=== PATIENT | male | born 1980 | race Caucasian/White ===

== ENCOUNTER 2020-07-10 12:12 | Emergency (ER) | payer BC, SELFPAY ==
--- NOTE | ~2020-07-10 | CT_ITS ---
EXAMINATION: CT abdomen pelvis wo con DATE: 07/10/2020 13:45 INDICATION: Right lower quadrant abdominal and flank pain. TECHNIQUE: Computed tomography (CT) of the abdomen and pelvis was performed without intravenous contr ast. Automated exposure control and iterative reconstruction technique were employed. The dose-length product was 313.07 mGy-cm. COMPARISON: None FINDINGS: Mild dependent atelectasis in the right lower lobe. Heart size is normal. No pericardial or pleural e ffusion. Somewhat heterogeneous distribution of diffuse hepatic steatosis relatively sparing the righ t hepatic lobe and with more focal fat at the ligamentum teres. Gallbladder, spleen, pancreas and jessica ateral adrenal glands are normal. There are a pair of 2 mm stones in the distal right ureter located between 1.5 and 2.5 cm from the ureterovesicular junction. There is mild right hydroureteronephrosis. There is an additional 1 mm stone at the upper pole of the right kidney. No left-sided urolithiasis or hydroureteronephrosis. Bowels including the appendix are normal. Bladder is normal. No free intrap eritoneal gas or fluid. No pathologically enlarged abdominal or pelvic lymphadenopathy. Minimal lumba r and mild lower thoracic spondylosis with a few Schmorl's nodes along the lower thoracic spine. IMPRESSION: 1. Right nephrolithiasis with a pair of 2 mm stones in the distal right ureter resulting in mild righ t hydronephrosis. 2. Diffuse hepatic steatosis. Reviewed, dictated and finalized at location A. IMPRESSION: 1. Right nephrolithiasis with a pair of 2 mm stones in the distal right ureter resulting in mild right hydronephrosis. 2. Diffuse hepatic steatosis.
[2020-07-10 12:14] VITALS: BP 164/95; PULSE 65; RESP 18; TEMP 36.1; O2SAT 98
[2020-07-10 12:32] VITALS: BP 147/79; PULSE 54; RESP 20; O2SAT 97
[2020-07-10] MEDS: MORPHINE SULFATE 4 MG/ML INJ IV PUSH (12:33)
[2020-07-10] MEDS: SODIUM CHLORIDE 0.9% IV 1,000 ML 150 ML IV CONT (12:35)
[2020-07-10 12:36] LABS: Basophils Absolute Auto 0.1 K/mm3 (0.0-0.1); Basophils Percent Auto 0.4 % (0.2-1.2); Eosinophils Percent Auto 0.1 % (0-4.4); Hematocrit 39.5 % (42.0-52.0); Immature Granulocyte Absolute 0.09 K/mm3 (0.00-0.031); Immature Granulocyte Percent A 0.6 % (0-0.5); Lymphocytes Percent Auto 11.4 % (18.3-44.2); Mean Corpuscular HGB Conc 35.4 g/dl (32-36); Mean Corpuscular Hemoglobin 36.9 pg (26-34); Mean Corpuscular Volume 104.2 fl (80-100); Mean Platelet Volume 9.4 fl (7.4-10.4); Monocytes Absolute Auto 0.7 K/mm3 (0.1-0.6); Monocytes Percent Auto 4.6 % (2.6-8.5); Neutrophils Absolute Auto 13.2 K/mm3 (1.3-6.7); Neutrophils Percent Auto 82.9 % (45.5-73.1); Platelet Count Result 162 k/mm3 (150-375); Red Blood Count 3.79 M/mm3 (4.6-6.20); Red Cell Distribution Width 13.1 % (11.5-14.5); White Blood Count 15.9 K/mm3 (4.5-10.0)
[2020-07-10 12:47] LABS: Alanine Aminotransferase 35 U/L (4-50); Albumin Level 4.1 g/dL (3.5-5.1); Alkaline Phosphatase 112 U/L (38-126); Anion Gap 10 mmol/L (8-16); Aspartate Amino Transferase 93 U/L (17-59); Bilirubin,Total 0.5 mg/dL (0.2-1.3); Blood Urea Nitrogen 7 mg/dL (9-20); Calcium 8.5 mg/dL (8.4-10.2); Carbon Dioxide 22 mmol/L (22-30); Chloride 106 mmol/L (98-107); Estimated CRCL calculation 111 ml/min; Estimated Glomerular Filt Rate > 60; Glucose 179 mg/dL (75-110); Lipase 166 U/L (23-300); Potassium 3.9 mmol/L (3.4-5.0); Sodium 138 mmol/L (137-145)
[2020-07-10 12:51] LABS: Add Urine Microscopic? YES; Appearance Urine Cloudy (Clear); Bilirubin Urine Negative (Negative); Blood Urine 3+ (Negative); Color Urine Yellow (Yellow); Glucose Urine UA Negative (Negative); Ketones Urine Negative (Negative); Leukocyte Esterase Ur Negative LEU/UL (Negative); Mucus Urine Rare /lpf; Nitrate Urine Negative (Negative); Protein Urine Negative (Negative); RBC Urine >75 /hpf (0-2); Specific Grav Ur 1.017 (1.001-1.035); Urobilinogen Urine Negative mg/dL (<2.0)
--- NOTE | 2020-07-10 14:14 | ED.ABDPAIN ---
HPI - Abdominal Pain General Chief Complaint: Abdominal Pain Stated Complaint: abdominal pain Time Seen by Provider: 07/10/20 12:18 Source: patient Mode of arrival: ambulatory Limitations: no limitations History of Present Illness HPI narrative: 40-year-old with no major medical problems here with complaints of sudden onset of lower abdominal pain started few hours ago at home. Patient states that he woke up without any difficulty while eating breakfast he started having pain in the lower abdomen. He denies any fever or chills. Complains of nausea and he also stated that he is unable to urinate. No previous history of any kidney stones MD elicited complaint: abdominal pain Pertinent past history: none Onset (ago): hour(s) (1) Pain Consistency: constant Location: suprapubic Severity: moderate Quality: stabbing and aching Radiation: suprapubic Migration to: no migration Exacerbating factors: nothing Relieving factors: nothing Associated symptoms: nausea Related Data Allergies Allergy/AdvReac Type Severity Reaction Status Date / Time No Known Allergies Allergy Verified 07/10/20 12:30 Review of Systems Review of Systems: All systems reviewed & are unremarkable except as noted in HPI and below Constitutional: Constitutional: Reports no additional constitutional complaints Eyes: Eyes: Reports as per HPI Cardiovascular: Cardiovascular: Reports as per HPI Respiratory: Respiratory: Reports as per HPI Genitourinary: Genitourinary: Reports as per HPI Musculoskeletal: Musculoskeletal: Reports no additional musculoskeletal complaints Exam Narrative: Exam Narrative: GENERAL: Well-appearing, well-nourished, and in no acute distress. HEAD: Normocephalic, atraumatic. EYES: PERRLA and EOMI. ENT: Nares clear, no rhinorrhea or epistaxis. Mucous membranes moist. NECK: Supple. CHEST: Clear to auscultation. No respiratory distress. HEART: Regular rate and rhythm. No murmur heard. Normal peripheral pulses. ABDOMEN: Soft, tender in the suprapubic area and in the right lower quadrant area., nondistended, normal active bowel sounds. EXTREMITIES: Normal range of motion. No edema. SKIN: Warm, dry, no rash. NEURO: No focal deficits. Alert and oriented x3. PSYCH: Normal mood and affect. Course Course Emergency Course: With a sudden onset of her lower abdominal pain give him some IV fluids and pain medication and review evaluate for cause of pain. Vital Signs Vital signs: Vital Signs Temperature 36.1 C L 07/10/20 12:14 Pulse Rate 65 07/10/20 12:14 Respiratory Rate 18 07/10/20 12:14 Blood Pressure 164/95 H 07/10/20 12:14 Pulse Oximetry 98 07/10/20 12:14 Temperature 36.1 C L 07/10/20 12:14 Pulse Rate 54 L 07/10/20 12:32 Respiratory Rate 20 07/10/20 12:32 Blood Pressure 147/79 H 07/10/20 12:32 Pulse Oximetry 97 07/10/20 12:32 MDM - Abdominal Pain MDM Narrative Medical decision making narrative: With a given history of lower abdominal pain sudden onset and unable to urinate appears to be more like kidney stones, will order CBC chemistry UA and a CT of the abdomen and pelvis meanwhile I will hydrate him and also control his pain with morphine. Patient states his pain has much improved I discussed labs and CT findings with the patient. Differential Diagnosis Differential diagnosis: Likely calculus of kidney, constipation and gastroenteritis Lab Data Result diagrams: 07/10/20 12:29 07/10/20 12:29 Labs: Lab Results 07/10/20 07/10/20 07/10/20 Range/Units 12:29 12:29 12:29 WBC 15.9 H (4.5-10.0) K/mm3 RBC 3.79 L (4.6-6.20) M/mm3 Hgb 14.0 (14.0-18.0) g/dL Hct 39.5 L (42.0-52.0) % MCV 104.2 H (80-100) fl MCH 36.9 H (26-34) pg MCHC 35.4 (32-36) g/dl RDW 13.1 (11.5-14.5) % Plt Count 162 (150-375) k/mm3 MPV 9.4 (7.4-10.4) fl Immature Gran % (Auto) 0.6 H (0-0.5) % Neut % (Auto) 82.9 H (45.5-73.1) % Lymph % (Auto
[2020-07-10 14:36] VITALS: BP 159/71; PULSE 53; RESP 18; TEMP 36.7; O2SAT 99
== END 2020-07-10 14:38 | disposition home or self-care (01) ==
PROVIDERS: Emergency Provider Family Medicine
DX: N13.2 Hydronephrosis with renal and ureteral calculous obstruction (principal); K76.0 Fatty (change of) liver, not elsewhere classified
CPT/HCPCS: 36415; 74176; 80053; 81001; 83690; 85025; 87086; 96361; 96374; 99284; J2270; J7030

== ENCOUNTER 2020-08-16 11:15 | Emergency (ER) | payer BC, SELFPAY ==
--- NOTE | ~2020-08-16 | CT_ITS ---
EXAMINATION: CT abdomen pelvis wo con EXAM DATE: 08/16/2020 13:14 INDICATION: Right lower quadrant pain, history nephrolithiasis. TECHNIQUE: Spiral CT of the abdomen and pelvis was performed without contrast. Axial, coronal and sag ittal images were reviewed. The dose-length product (DLP) for this examination was 190.28 mGy-cm. T he exposure was tailored according to patient size (auto mA exposure control), and iterative reconstr uction (ASIR) was used as additional dose reduction technique. Comparison is made to prior examinatio n from 07/10/2020. FINDINGS: There is 1 x 3 mm stone in the right ureterovesicular junction with mild obstructive nephro aura. Additional punctate right superior calyceal stone. The prostate is unremarkable. The bladder is unremarkable. There is hepatic steatosis without suspicious focal lesion identified. Spleen, adr enal glands, pancreas are unremarkable. Gallbladder is unremarkable. No biliary obstruction. There is no retroperitoneal or pelvic lymphadenopathy. The appendix is normal. The stomach and small bowel are unremarkable. There is expected amount of c olonic stool. No free intraperitoneal gas. The heart is normal in size. There are no pericardial or pleural effusions. There is left lower lobe 4 mm pleural-based nodule, granuloma. Small sclerot ic focus in T10 likely bone island. IMPRESSION: 1. Right UVJ 1 x 3 mm stone, mild obstructive nephropathy. 2. Punctate right nephrolithiasis. 3. Hepatic steatosis. Reviewed, dictated and finalized at location B.
--- NOTE | ~2020-08-16 | XR_ITS ---
EXAMINATION: XR abdomen/kub 1V EXAM DATE: 08/16/2020 11:40 INDICATION: Right flank pain. Dysuria. TECHNIQUE: Frontal projection(s) of the abdomen for interpretation. There is no prior study for jyothi gomez. FINDINGS: There is expected amount of colonic stool and gas. No small bowel dilation, nonobstructiv e bowel gas pattern. Calcifications in the pelvis are believed to be phleboliths. There is no organomegaly suspected. The bones are unremarkable. Lung bases unremarkable. IMPRESSION: Several pelvic calcifications most likely phleboliths. Reviewed, dictated and finalized at location B.
[2020-08-16 11:22] VITALS: BP 154/96; PULSE 72; RESP 14; TEMP 36.3; O2SAT 99
--- NOTE | 2020-08-16 11:29 | ED.ABDPAIN ---
HPI - Abdominal Pain General Chief Complaint: Abdominal Pain Stated Complaint: FLANK PAIN - PMH OF KIDNEY STONE Time Seen by Provider: 08/16/20 11:29 Source: patient Mode of arrival: ambulatory Limitations: no limitations History of Present Illness HPI narrative: Patient is a 40-year-old male with a history of right-sided nephrolithiasis who presents for evaluation of right lower abdominal pain. Patient states pain is been severe, sharp, cramping in nature, awakened him early this morning. He has had some associated nausea, no vomiting. Patient reports difficulty with urination, no hematuria or dysuria. No fever or chills. Patient was seen here in June and diagnosed with 2 distal ureteral stones, never had any urology follow-up as he was feeling improved with pain medication. Related Data Allergies Allergy/AdvReac Type Severity Reaction Status Date / Time No Known Allergies Allergy Verified 08/16/20 11:59 Review of Systems Review of Systems: Narrative: CONSTITUTIONAL: Denies fever CARDIOVASCULAR: Denies chest pain RESPIRATORY: Denies cough or dyspnea. GASTROINTESTINAL: Reports right-sided lower abdominal pain SKIN: Denies rash MUSCULOSKELETAL: Reports right flank pain NEUROLOGIC: Denies headache [facility] Past Medical History Medical History Nephrolithiasis Social History Social History (Updated 08/16/20 @ 12:08 by Benita Clarke MD) Smoking status: Current every day smoker Alcohol intake: current Gender identity (if verbalized by the patient): Male Exam Narrative: Exam Narrative: GENERAL: Awake, alert, conversant HEAD: Normocephalic, atraumatic. EYES: PERRLA and EOMI. ENT: Nares clear, no rhinorrhea or epistaxis. Mucous membranes moist. NECK: Supple. CHEST: No respiratory distress, breathing even and non labored HEART: Regular rate, sinus rhythm ABDOMEN:Non distended, right lower quadrant abdominal tenderness, positive guarding, no rebound, non-rigidity, no masses, no lymphadenopathy EXTREMITIES: Normal range of motion. No edema. SKIN: Warm, dry, no rash. NEURO:No focal deficits. Alert and oriented x3 Course Vital Signs Vital signs: Vital Signs Temperature 36.3 C L 08/16/20 11:22 Pulse Rate 72 08/16/20 11:22 Respiratory Rate 14 08/16/20 11:22 Blood Pressure 154/96 H 10/06/20 11:22 Pulse Oximetry 99 08/16/20 11:22 Temperature 36.3 C L 08/16/20 11:22 Pulse Rate 78 08/16/20 14:12 Respiratory Rate 19 08/16/20 14:12 Blood Pressure 134/90 08/16/20 14:12 Pulse Oximetry 97 08/16/20 14:12 MDM - Abdominal Pain MDM Narrative Medical decision making narrative: Patient presented for evaluation of right lower quadrant abdominal pain. At the time of assessment, ABCs are intact and vital signs are stable. Patient has no right lower quadrant tenderness. Laboratory results are reassuring. No UTI. No acute kidney injury. CT scan confirms right ureteral stone, quite distal at this point. I spoke with urology regarding the patient in order to get him close follow-up. Is likely the patient is going to pass a stone on his own. Dr. Hammond did not recommend any antibiotics for this patient. Patient discharged home with pain control and follow-up instructions. Differential Diagnosis Differential diagnosis: Likely abdominal pain, acute appendicitis, calculus of kidney, gastroenteritis and pancreatitis Medical Records Attestation: I reviewed the patient's medical records. Lab Data Attestation: I reviewed the patient's lab results. Result diagrams: 08/16/20 11:48 08/16/20 11:48 Labs: Lab Results 08/16/20 08/16/20 08/16/20 Range/Units 11:48 11:48 11:51 WBC 9.5 (4.5-10.0) K/mm3 RBC 3.84 L (4.6-6.20) M/mm3 Hgb 14.2 (14.0-18.0) g/dL Hct 40.6 L (42.0-52.0) % MCV 105.7 H (80-100) fl MCH 37.0 H (26-34) pg MCHC 35.0 (32-36) g/dl RDW 12.6 (11.5-14.5)
[2020-08-16 11:56] LABS: Basophils Absolute Auto 0.1 K/mm3 (0.0-0.1); Basophils Percent Auto 0.6 % (0.2-1.2); Eosinophils Percent Auto 0.4 % (0-4.4); Hematocrit 40.6 % (42.0-52.0); Hemoglobin 14.2 g/dL (14.0-18.0); Immature Granulocyte Absolute 0.04 K/mm3 (0.00-0.031); Immature Granulocyte Percent A 0.4 % (0-0.5); Lymphocytes Absolute Auto 2.14 K/mm3 (0.9-3.2); Lymphocytes Percent Auto 22.6 % (18.3-44.2); Mean Corpuscular Volume 105.7 fl (80-100); Mean Platelet Volume 9.6 fl (7.4-10.4); Monocytes Absolute Auto 1.2 K/mm3 (0.1-0.6); Monocytes Percent Auto 12.4 % (2.6-8.5); Neutrophils Percent Auto 63.6 % (45.5-73.1); Platelet Count Result 193 k/mm3 (150-375); Red Blood Count 3.84 M/mm3 (4.6-6.20); Red Cell Distribution Width 12.6 % (11.5-14.5); White Blood Count 9.5 K/mm3 (4.5-10.0)
[2020-08-16 12:00] LABS: Add Urine Microscopic? YES; Appearance Urine Clear (Clear); Bacteria Urine Trace /hpf; Bilirubin Urine Negative (Negative); Blood Urine 3+ (Negative); Color Urine Yellow (Yellow); Glucose Urine UA Negative (Negative); Ketones Urine Negative (Negative); Leukocyte Esterase Ur Trace LEU/UL (Negative); Mucus Urine Heavy /lpf; Nitrate Urine Negative (Negative); Protein Urine 2+ mg/dL (Negative); RBC Urine >75 /hpf (0-2); Specific Grav Ur 1.021 (1.001-1.035); Squamous Epithelial Cell Urine Rare /hpf (Few); Urobilinogen Urine Negative mg/dL (<2.0)
[2020-08-16] MEDS: MORPHINE SULFATE (*CRX) 4 MG/ML INJ IV PUSH (12:01)
[2020-08-16] MEDS: ONDANSETRON INJ 4 MG/2 ML VIAL IV PUSH (12:01)
[2020-08-16 12:08] LABS: Alanine Aminotransferase 50 U/L (4-50); Albumin Level 4.4 g/dL (3.5-5.1); Alkaline Phosphatase 122 U/L (38-126); Anion Gap 10 mmol/L (8-16); Aspartate Amino Transferase 115 U/L (17-59); Bilirubin,Total 0.4 mg/dL (0.2-1.3); Blood Urea Nitrogen 11 mg/dL (9-20); Calcium 9.6 mg/dL (8.4-10.2); Carbon Dioxide 27 mmol/L (22-30); Chloride 106 mmol/L (98-107); Estimated CRCL calculation 129 ml/min; Estimated Glomerular Filt Rate > 60; Glucose 104 mg/dL (75-110); Potassium 3.9 mmol/L (3.4-5.0); Sodium 143 mmol/L (137-145)
[2020-08-16 14:12] VITALS: BP 134/90; PULSE 78; RESP 19; O2SAT 97
== END 2020-08-16 14:14 | disposition home or self-care (01) ==
PROVIDERS: Emergency Provider Emergency Medicine
DX: N13.8 Other obstructive and reflux uropathy (principal); N20.2 Calculus of kidney with calculus of ureter; F17.200 Nicotine dependence, unspecified, uncomplicated; Z87.442 Personal history of urinary calculi; K76.0 Fatty (change of) liver, not elsewhere classified
CPT/HCPCS: 36415; 74018; 74176; 80053; 81001; 85025; 87086; 87088; 96374; 96375; 99284; J2270; J2405

== ENCOUNTER 2021-05-21 12:45 | Emergency (ER) | payer BC, SELFPAY ==
--- NOTE | ~2021-05-21 | CT_ITS ---
EXAMINATION: CT abdomen pelvis wo con DATE: 05/21/2021 14:31 INDICATION: Right flank and lower abdominal pain. History of kidney stones. TECHNIQUE: Computed tomography (CT) of the abdomen and pelvis was performed without intravenous contr ast. The dose-length product was 176.09 mGy-cm. Automated exposure control and iterative reconstructi on technique were employed. COMPARISON: CT dated 08/16/2020. FINDINGS: Lung bases unremarkable. Heart size normal. No significant pleural or pericardial effusion. No significant vascular abnormality. Retroaortic left renal vein. 4 mm right ureterovesical junction stone with mild hydronephrosis. Normal appendix. Left kidney, spleen, pancreas and adrenal glands ar e unremarkable. There is fatty infiltration of the liver. Nonobstructive bowel gas pattern. No abnorm al pelvic masses or fluid collections. No evidence for hernia. No free air or free fluid. Mild osteoa rthritis of the hips. Mild lumbar spondylosis. IMPRESSION: 1. Right UVJ stone measuring 4 mm with mild hydronephrosis. Reviewed, dictated and finalized at location A.
[2021-05-21 12:56] VITALS: BP 163/105; PULSE 75; RESP 18; TEMP 37.2; O2SAT 99
[2021-05-21 13:16] LABS: Basophils Absolute Auto 0.1 K/mm3 (0.0-0.1); Basophils Percent Auto 0.7 % (0.2-1.2); Eosinophils Absolute Auto 0.1 K/mm3 (0-0.3); Eosinophils Percent Auto 1.2 % (0-4.4); Hematocrit 41.8 % (42.0-52.0); Hemoglobin 14.5 g/dL (14.0-18.0); Immature Granulocyte Absolute 0.02 K/mm3 (0.00-0.031); Immature Granulocyte Percent A 0.3 % (0-0.5); Lymphocytes Absolute Auto 2.21 K/mm3 (0.9-3.2); Lymphocytes Percent Auto 30.4 % (18.3-44.2); Mean Corpuscular HGB Conc 34.7 g/dl (32-36); Mean Corpuscular Hemoglobin 36.4 pg (26-34); Mean Platelet Volume 9.6 fl (7.4-10.4); Monocytes Absolute Auto 0.6 K/mm3 (0.1-0.6); Monocytes Percent Auto 7.9 % (2.6-8.5); Neutrophils Absolute Auto 4.3 K/mm3 (1.3-6.7); Neutrophils Percent Auto 59.5 % (45.5-73.1); Platelet Count Result 153 k/mm3 (150-375); Red Blood Count 3.98 M/mm3 (4.6-6.20); Red Cell Distribution Width 12.8 % (11.5-14.5); White Blood Count 7.3 K/mm3 (4.5-10.0)
[2021-05-21 13:25] LABS: Anion Gap 13 mmol/L (8-16); Blood Urea Nitrogen 7 mg/dL (9-20); Calcium 9.5 mg/dL (8.4-10.2); Carbon Dioxide 24 mmol/L (22-30); Chloride 104 mmol/L (98-107); Estimated CRCL calculation 125 ml/min; Estimated Glomerular Filt Rate > 60; Glucose 113 mg/dL (75-110); Potassium 3.5 mmol/L (3.4-5.0); Sodium 141 mmol/L (137-145)
[2021-05-21 13:49] LABS: Add Urine Microscopic? YES; Appearance Urine Cloudy (Clear); Bilirubin Urine Negative (Negative); Blood Urine 3+ (Negative); Color Urine Amber (Yellow); Glucose Urine UA Negative (Negative); Ketones Urine Trace mg/dL (Negative); Leukocyte Esterase Ur Trace LEU/UL (Negative); Mucus Urine Moderate /lpf; Nitrate Urine Negative (Negative); Protein Urine 2+ mg/dL (Negative); RBC Urine >75 /hpf (0-2); Specific Grav Ur 1.023 (1.001-1.035); Squamous Epithelial Cell Urine Occasional /hpf (Few)
--- NOTE | 2021-05-21 14:03 | ED.ABDPAIN ---
HPI - Abdominal Pain General Chief Complaint: Urogenital-Male Stated Complaint: blood in urine Time Seen by Provider: 05/21/21 13:48 Source: patient Mode of arrival: ambulatory Limitations: no limitations History of Present Illness HPI narrative: Patient is a 41-year-old male who presents complaining of lower abdominal pain and right-sided flank pain x2 days. He reports initial pain started on right flank and reports pain now in lower abdomen. He reports increased blood in urine this a.m. He reports history of kidney stones in the past. He denies nausea, vomiting or diarrhea. He denies taking [id number] pain medications prior to arrival. Patient denies significant medical history. MD elicited complaint: abdominal pain and flank pain Pertinent past history: kidney stones Related Data Allergies Allergy/AdvReac Type Severity Reaction Status Date / Time No Known Allergies Allergy Verified 08/16/20 11:59 Review of Systems Review of Systems: Narrative: CONSTITUTIONAL: Denies fever, chills, or sweats. EYES: Denies visual changes, redness, or discharge. ENT: Denies rhinorrhea, congestion, sore throat, or otalgia. CARDIOVASCULAR: Denies chest pain, palpitations, or edema. RESPIRATORY: Denies cough or dyspnea. GASTROINTESTINAL: Reports flank and abdominal pain, denies nausea, vomiting, or diarrhea. GENITOURINARY: Denies dysuria, reports frequency and hematuria. SKIN: Denies rash or itching. MUSCULOSKELETAL: Denies back pain, joint pain, or myalgia. NEUROLOGIC: Denies headache, numbness, dizziness, or weakness. PSYCHIATRIC: Denies anxiety or depression. PMFSH Past Medical History Medical History (Updated 05/21/21 @ 16:17 by AMALIA Hein) Nephrolithiasis Social History Social History Smoking status: Current every day smoker Tobacco type: cigarettes Alcohol intake: current Substance use: current Substance use type: marijuana Living arrangements: with family Gender identity (if verbalized by the patient): Male Comments At the time of signature, I have reviewed and agree with nursing past medical, surgical, social, and family history unless otherwise noted. Please see nursing chart for further information. There is no relevant family history pertinent to the presenting complaint. Exam Narrative: Exam Narrative: GENERAL: Well-appearing, well-nourished, and in no acute distress. HEAD: Normocephalic, atraumatic. EYES: EOMI. No redness or drainage. Conjunctiva are normal. ENT: Mucous membranes pink and moist. CHEST: No respiratory distress. Clear to auscultation. HEART: Regular rate and rhythm. No murmur appreciated. Normal peripheral pulses. GI: Soft, nontender without rebound, or guarding. No distention. Bowel sounds normal in all quadrants. MUSCULOSKELETAL: No bony tenderness. EXTREMITIES: Normal range of motion. No edema. SKIN: Warm, dry, no rash. NEURO: No focal deficits. Alert and oriented x3. Gait steady. PSYCH: Normal affect. No signs of depression or anxiety. Course Course Emergency Course: Discussed with Dr. Daniels who suggest patient being discharged with pain medication, antinausea, Flomax and follow-up with urology this week. Patient agrees with plan of care and is stable for discharge home. Vital Signs Vital signs: Vital Signs Temperature 37.2 C 05/21/21 12:56 Pulse Rate 75 05/21/21 12:56 Respiratory Rate 18 05/21/21 12:56 Blood Pressure 163/105 H 05/21/21 12:56 Pulse Oximetry 99 05/21/21 12:56 Temperature 36.5 C 05/21/21 14:40 Pulse Rate 93 05/21/21 17:25 Respiratory Rate 14 05/21/21 17:25 Blood Pressure 139/106 H 05/21/21 17:25 Pulse Oximetry 95 05/21/21 17:25 Reviewed. Patient has been instructed to follow-up with his PCP regarding his blood pressure. MDM - Abdominal Pain MDM Narrative Medical decision making narrative: Patient has a patient is a 4 mm obstructing stone with m
[2021-05-21] MEDS: ONDANSETRON INJ 4 MG/2 ML VIAL IV PUSH (14:14)
[2021-05-21] MEDS: MORPHINE SULFATE (*CRX) 4 MG/ML INJ IV PUSH ×2 (14:14→17:23)
[2021-05-21] MEDS: SODIUM CHLORIDE 0.9% IV 1,000 ML 999 ML IV CONT (14:14)
[2021-05-21 14:21] VITALS: BP 165/96; PULSE 79; RESP 18; TEMP 36.6; O2SAT 100
--- NOTE | 2021-05-21 14:24 | PC.NURSE ---
Patient to CT at this time.
[2021-05-21 14:40] VITALS: BP 146/85; PULSE 69; RESP 18; TEMP 36.5; O2SAT 95
[2021-05-21] MEDS: KETOROLAC 30 MG/ML VIAL (*BKC) IV PUSH (17:23)
[2021-05-21 17:25] VITALS: BP 139/106; PULSE 93; RESP 14; O2SAT 95
== END 2021-05-21 19:16 | disposition home or self-care (01) ==
PROVIDERS: Emergency Medicine; Emergency Provider Nurse Practitioner
DX: N13.2 Hydronephrosis with renal and ureteral calculous obstruction (principal); F17.210 Nicotine dependence, cigarettes, uncomplicated; Z87.442 Personal history of urinary calculi
CPT/HCPCS: 36415; 74176; 80048; 81001; 85025; 96365; 96375; 96376; 99284; J1885; J2270; J2405; J7030

== ENCOUNTER 2021-12-30 10:16 | Emergency (ER) | payer BC, SELFPAY ==
--- NOTE | ~2021-12-30 | CT_ITS ---
EXAMINATION: CT abdomen pelvis wo con DATE: 12/30/2021 10:48 INDICATION: Left flank pain. Nausea, vomiting and constipation. TECHNIQUE: Computed tomography (CT) of the abdomen and pelvis was performed without intravenous contr ast. Automated exposure control and iterative reconstruction technique were employed. The dose-length product was 299.38 mGy-cm. COMPARISON: 05/21/21 FINDINGS: Lung bases are clear. Heart size is normal. No pericardial or pleural effusion. Marked diffuse hepati c steatosis. Gallbladder, spleen, pancreas and bilateral adrenal glands are normal. 2 mm stone at the left ureterovesicular junction with very mild left hydroureteronephrosis. A couple punctate, <1 mm s tones in the left kidney. 3 nonobstructing stones in the right kidney measuring 1-2 mm with no right- sided or ureteral stones or hydronephrosis. Bowels including the appendix are normal. Decompressed bl adder is normal. No free intraperitoneal gas or fluid. No pathologically enlarged abdominal or pelvic lymphadenopathy. Mild thoracic and lumbar spondylosis. IMPRESSION: 1. Lateral nephrolithiasis with obstructing 2 mm stone at the left ureterovesicular junction with arnaldo y mild left hydroureteronephrosis. 2. Diffuse hepatic steatosis. Reviewed, dictated and finalized at location A. [employer] IMPRESSION: 1. Lateral nephrolithiasis with obstructing 2 mm stone at the left ureterovesic ular junction with very mild left hydroureteronephrosis. 2. Diffuse hepatic steatosis.
--- NOTE | 2021-12-30 10:29 | ED.BACK ---
HPI - Back Pain/Injury General Chief Complaint: Urogenital-Male Stated Complaint: Kidney Stones Time Seen by Provider: 12/30/21 10:22 Source: patient History of Present Illness HPI Narrative: Left flank pain in the last 2 days associated with nausea and vomiting, patient denies any fever or chills, patient report trouble urinating, history of kidney stone. Related Data Allergies Allergy/AdvReac Type Severity Reaction Status Date / Time No Known Allergies Allergy Verified 08/16/20 11:59 Review of Systems Review of Systems: CONSTITUTIONAL: Denies fever, chills, or sweats. EYES: Denies visual changes, redness, or discharge. ENT: Denies rhinorrhea, congestion, sore throat, or otalgia. CARDIOVASCULAR: Denies chest pain, palpitations, or edema. RESPIRATORY: Denies cough or dyspnea. GASTROINTESTINAL: Denies abdominal pain, nausea, vomiting, or diarrhea. GENITOURINARY: Denies dysuria or hematuria. SKIN: Denies rash or itching. MUSCULOSKELETAL: Denies back pain, joint pain, or myalgia. NEUROLOGIC: Denies headache, numbness, or weakness. PSYCHIATRIC: Denies anxiety or depression. [facility] Past Medical History Medical History (Updated 12/30/21 @ 13:38 by Davida Ureña MD) Nephrolithiasis Social History Social History Smoking status: Current every day smoker Tobacco type: cigarettes Alcohol intake: current Substance use: current Substance use type: marijuana Gender identity (if verbalized by the patient): Male Exam Narrative: General appearance: Well-developed, well-nourished Skin: Normal color Head: Normocephalic, nontraumatic Eyes: Clear conjunctiva ENT: Oropharynx normal, ears normal, nose normal Neck: Supple, nontender Chest and respiratory: Airway patent, no respiratory distress, no accessory muscle use Heart: Regular rate/rhythm Abdomen: Soft, left flank tenderness, no organomegaly, quiet bowel sounds Vascular: Normal peripheral pulses, normal capillary refill. Musculoskeletal: Normal range of motion, nontender back Neurologic: Alert and oriented ?3, [employer] SU[employer]ICIAN is normal as tested, no gross motor deficit Course Vital Signs Vital signs: Vital Signs Temperature 36.6 C 12/30/21 10:37 Pulse Rate 66 12/30/21 10:37 Respiratory Rate 16 12/30/21 10:37 Blood Pressure 148/100 H 12/30/21 10:37 Pulse Oximetry 99 12/30/21 10:37 Temperature 36.6 C 12/30/21 10:37 Pulse Rate 66 12/30/21 10:37 Respiratory Rate 16 12/30/21 10:37 Blood Pressure 148/100 H 12/30/21 10:37 Pulse Oximetry 99 12/30/21 10:37 MDM - Back Pain/Injury Lab Data Result diagrams: 12/30/21 10:58 12/30/21 10:58 Labs: Lab Results 12/30/21 12/30/21 12/30/21 Range/Units 10:58 10:58 10:58 WBC 5.9 (4.5-10.0) K/mm3 RBC 3.75 L (4.6-6.20) M/mm3 Hgb 14.4 (14.0-18.0) g/dL Hct 40.4 L (42.0-52.0) % MCV 107.7 H (80-100) fl MCH 38.4 H (26-34) pg MCHC 35.6 (32-36) g/dl RDW 12.5 (11.5-14.5) % Plt Count 128 L (150-375) k/mm3 MPV 9.6 (7.4-10.4) fl Immature Gran % (Auto) 0.5 (0-0.5) % Neut % (Auto) 44.1 L (45.5-73.1) % Lymph % (Auto) 43.8 (18.3-44.2) % [place] % (Auto) 9.7 H (2.6-8.5) % Eos % (Auto) 0.9 (0-4.4) % Baso % (Auto) 1.0 (0.2-1.2) % Lymph # (Auto) 2.56 (0.9-3.2) K/mm3 [place] # (Auto) 0.6 (0.1-0.6) K/mm3 Eos # (Auto) 0.1 (0-0.3) K/mm3 Baso # (Auto) 0.1 (0.0-0.1) K/mm3 Abs Immat Gran (auto) 0.03 (0.00-0.031) K/mm3 Absolute Neuts (auto) 2.6 (1.3-6.7) K/mm3 Absolute Nucleated RBC 0.0 (0.0-0.012) K/mm3 Nucleated RBC % 0.0 (0.0-0.2) % Sodium 14
[2021-12-30 10:37] VITALS: BP 148/100; PULSE 66; RESP 16; TEMP 36.6; O2SAT 99
[2021-12-30 11:22] LABS: Add Urine Microscopic? YES; Appearance Urine Clear (Clear); Bacteria Urine Trace /hpf; Bilirubin Urine Negative (Negative); Blood Urine 1+ (Negative); Calcium Oxalate Crystals Urine Present /hpf; Color Urine Amber (Yellow); Glucose Urine UA Negative (Negative); Ketones Urine Negative (Negative); Leukocyte Esterase Ur Negative LEU/UL (Negative); Mucus Urine Heavy /lpf; Nitrate Urine Negative (Negative); Protein Urine 2+ mg/dL (Negative); RBC Urine 21-50 /hpf (0-2); Squamous Epithelial Cell Urine Rare /hpf (Few)
[2021-12-30 11:23] LABS: Basophils Absolute Auto 0.1 K/mm3 (0.0-0.1); Eosinophils Absolute Auto 0.1 K/mm3 (0-0.3); Eosinophils Percent Auto 0.9 % (0-4.4); Hematocrit 40.4 % (42.0-52.0); Hemoglobin 14.4 g/dL (14.0-18.0); Immature Granulocyte Absolute 0.03 K/mm3 (0.00-0.031); Immature Granulocyte Percent A 0.5 % (0-0.5); Lymphocytes Absolute Auto 2.56 K/mm3 (0.9-3.2); Lymphocytes Percent Auto 43.8 % (18.3-44.2); Mean Corpuscular HGB Conc 35.6 g/dl (32-36); Mean Corpuscular Hemoglobin 38.4 pg (26-34); Mean Corpuscular Volume 107.7 fl (80-100); Mean Platelet Volume 9.6 fl (7.4-10.4); Monocytes Absolute Auto 0.6 K/mm3 (0.1-0.6); Monocytes Percent Auto 9.7 % (2.6-8.5); Neutrophils Absolute Auto 2.6 K/mm3 (1.3-6.7); Neutrophils Percent Auto 44.1 % (45.5-73.1); Platelet Count Result 128 k/mm3 (150-375); Red Blood Count 3.75 M/mm3 (4.6-6.20); Red Cell Distribution Width 12.5 % (11.5-14.5); White Blood Count 5.9 K/mm3 (4.5-10.0)
[2021-12-30 11:24] LABS: Alanine Aminotransferase 62 U/L (4-50); Albumin Level 4.5 g/dL (3.5-5.1); Alkaline Phosphatase 116 U/L (38-126); Anion Gap 13 mmol/L (8-16); Aspartate Amino Transferase 260 U/L (17-59); Bilirubin,Total 0.6 mg/dL (0.2-1.3); Blood Urea Nitrogen 8 mg/dL (9-20); Calcium 9.1 mg/dL (8.4-10.2); Carbon Dioxide 22 mmol/L (22-30); Chloride 106 mmol/L (98-107); Estimated CRCL calculation 109 ml/min; Estimated Glomerular Filt Rate > 60; Glucose 147 mg/dL (65-110); Lipase 168 U/L (23-300); Potassium 4.2 mmol/L (3.4-5.0); Sodium 141 mmol/L (137-145)
[2021-12-30] MEDS: SODIUM CHLORIDE 0.9% IV 1,000 ML 999 ML IV CONT (11:26)
[2021-12-30] MEDS: HYDROmorphone HCL INJ (*CRX) 1 MG/ML SYR 0.5 MG IV PUSH (11:27)
[2021-12-30] MEDS: ONDANSETRON INJ 4 MG/2 ML VIAL IV PUSH (11:27)
[2021-12-30] MEDS: KETOROLAC 30 MG/ML VIAL (*BKC) IV PUSH (13:22)
[2021-12-30] MEDS: TAMSULOSIN HCL 0.4 MG CAPSULE PO (13:22)
[2021-12-30 14:20] VITALS: BP 152/96; PULSE 87; RESP 18; O2SAT 98
== END 2021-12-30 14:23 | disposition home or self-care (01) ==
PROVIDERS: Emergency Provider Emergency Medicine
DX: N13.2 Hydronephrosis with renal and ureteral calculous obstruction (principal); Z87.442 Personal history of urinary calculi; F17.210 Nicotine dependence, cigarettes, uncomplicated; K76.0 Fatty (change of) liver, not elsewhere classified
CPT/HCPCS: 36415; 74176; 80053; 81001; 83690; 85025; 96361; 96374; 96375; 99284; A9270; J1170; J1885; J2405; J7030

== ENCOUNTER 2022-04-10 11:19 | Emergency (ER) | payer BC, SELFPAY ==
[2022-04-10 11:35] VITALS: BP 120/78; PULSE 73; RESP 14; TEMP 36.6; O2SAT 99
[2022-04-10 13:01] VITALS: BP 152/107; PULSE 87; RESP 16; O2SAT 99
[2022-04-10 13:04] VITALS: BP 134/99; PULSE 90; RESP 18; O2SAT 98
--- NOTE | 2022-04-10 13:15 | ED.ALCOHOL ---
HPI - Alcohol General Chief Complaint: Alcohol Stated Complaint: ETOH detox, last drink 0900 Time Seen by Provider: 04/10/22 13:01 History of Present Illness HPI narrative: 41yoM h/o EtOH dependence presents stating that he is about to [facility] 2[facility]3 days and wants to try to stop drinking before then so he doesn't have to experience withdrawals. No h/o DTs but states he does get bad shakes when he doesn't drink, and his last drink was this AM. C/o slight tremors, loose stools, anxiety, chills, body aches. Related Data Allergies Allergy/AdvReac Type Severity Reaction Status Date / Time No Known Allergies Allergy Verified 04/10/22 13:09 Review of Systems Review of Systems: CONST: Chills HEENT: No blurry vision C/V:? No chest pain RESP: No cough GI: Diarrhea : No dysuria. M/S: Body aches SKIN: Feeling of pins/needles NEURO: Tremors PSYCH:Anxiety PMFSH Past Medical History Medical History Nephrolithiasis Social History Social History Smoking status: Current every day smoker Tobacco type: cigarettes Alcohol intake: current Substance use: current Substance use type: marijuana Gender identity (if verbalized by the patient): Male Exam Narrative: EXAMINATION OF ORGAN SYSTEMS/BODY AREAS: Constitutional: Vital signs per nursing GENERAL:[No acute distress, non-toxic appearing.] HEAD:? Normal with no signs of head trauma. EYES:? EOMI, conjunctiva normal ENT:? Hearing grossly intact LUNGS:? Nonlabored breathing. HEART:? [Regular rate and rhythm] ABD:? [Soft], [nontender to palpation] EXT: Normal range of motion SKIN:? [No rashes or lesions.] NEURO: [Alert and oriented x 3. Very slight tremors.] PSYCH: Slightly anxious affect Course Vital Signs Vital signs: Vital Signs Temperature 97.8 F 04/10/22 11:35 Pulse Rate 73 04/10/22 11:35 Respiratory Rate 14 04/10/22 11:35 Blood Pressure 120/78 04/10/22 11:35 Pulse Oximetry 99 04/10/22 11:35 Oxygen Delivery Room Air 04/10/22 11:35 Temperature 97.8 F 04/10/22 11:35 Pulse Rate 86 04/10/22 14:09 Respiratory Rate 21 H 04/10/22 14:09 Blood Pressure 131/101 H 04/10/22 14:09 Pulse Oximetry 97 04/10/22 14:09 Oxygen Delivery Room Air 04/10/22 13:04 MDM - Alcohol MDM Narrative Medical decision making narrative: 41yoM presenting asking for help in quitting EtOH, last drink today. VSS and exam shows pt who is well-appearing with barely any tremor, I have low concern for serious w/drawal at this time with nl VS and dontae since his last drink was only several hours ago, but I will dc him with several doses of librium and zofran to help with w/drawal sx, I feel he is stable for dc and outpt tx as he will be monitored closely by his partner who accompanied him here, has no h/o of w/drawal sz, and he will be monitored at the group home facility over the next few days. Urged strongly to return to ER if he has any worsening sx not improved by his meds, and he endorses agreement and understanding. Discharge Plan Discharge Clinical Impression: Alcohol withdrawal syndrome Patient Disposition: Home, Self-Care Condition: Stable Instructions: Antibiotic Form, Alcohol Withdrawal (ED), Alcohol Dependence (ED) Additional Instructions: Please come back to the ER if you are feeling worse. Take the medications as needed when you start feeling withdrawal symptoms. Prescriptions: New ondansetron 4 mg tablet,disintegrating 4 mg PO Q6H PRN (Reason: nausea and vomiting) Qty: 10 0RF chlordiazepoxide HCl 25 mg capsule 25 mg PO Q6H PRN (Reason: alcohol withdrawal) Qty: 10 0RF Follow-up/Referrals: PHYSICIAN,CIRCULAR SAW EDGE FUSER [Primary Care Provider] -
[2022-04-10] MEDS: ONDANSETRON INJ 4 MG/2 ML VIAL IV PUSH (13:25)
[2022-04-10] MEDS: LORazepam INJ (*CRX) 2 MG/ML VIAL 1 MG IV PUSH (13:44)
[2022-04-10 14:09] VITALS: BP 131/101; PULSE 86; RESP 21; O2SAT 97
== END 2022-04-10 14:11 | disposition home or self-care (01) ==
PROVIDERS: Emergency Provider Emergency Medicine
DX: F10.239 Alcohol dependence with withdrawal, unspecified (principal); Y90.9 Presence of alcohol in blood, level not specified
CPT/HCPCS: 96374; 96375; 99284; J2060; J2405